=== PATIENT | female | born 2000 | race African-American/Black ===

== ENCOUNTER 2021-02-12 12:16 | Outpatient (CLI) | payer OTHER ==
[2020-08-05 17:53] VITALS: BMI 23.4
[~2021-02-12 12:16] MED LIST: REGLAN5 MG PO
== END 2021-02-12 15:30 | disposition home or self-care (01) ==
LOC: D.LDO 12:16
PROVIDERS: ATTEND Obstetrics & Gynecology
DX: O36.5990 Maternal care for other known or suspected poor fetal growth, unspecified trimester, not applicable or unspecified (principal)

== ENCOUNTER 2021-02-15 12:08 | Outpatient (CLI) | payer OTHER ==
[2020-08-05 17:53] VITALS: BMI 23.4
== END 2021-02-15 13:02 | disposition home or self-care (01) ==
LOC: D.LDO 12:08
PROVIDERS: ATTEND Obstetrics & Gynecology
DX: O41.00X0 Oligohydramnios, unspecified trimester, not applicable or unspecified (principal)

== ENCOUNTER 2021-02-22 20:24 | Inpatient (IN) | payer OTHER ==
[~2021-02-22] VITALS: Ht 165.1 cm; Wt 85.7 kg
--- NOTE | ~2021-02-22 | OP ---
PATIENT NAME: LD HASSAN MEDICAL RECORD: [id number] :99 LOCATION:[facility] D.1218 ADMISSION DATE:02/22/21 SURGEON: BEULAH LARSEN DO DATE OF OPERATION: 02/23/2021 PREOPERATIVE DIAGNOSES: Nonreassuring heart tracing, category II tracing, 38 weeks, IUGR, remote from delivery. POSTOPERATIVE DIAGNOSES: Nonreassuring heart tracing, category II tracing, 38 weeks, IUGR, remote from delivery. PRIMARY SURGEON: Beulah Larsen DO. ANESTHESIA: Spinal. PROCEDURE: Low transverse via Pfannenstiel incision. FINDINGS: Viable male infant born at 6:32 a.m., weight 6 pounds 11 ounces, Apgars 8 and 9. Clear amniotic fluid. No nuchal cord. Grossly normal uterus, bilateral tubes and ovaries. SPECIMEN: Placenta, cord blood, and cord pH, but cord pH was not done immediately and had to sit in the refrig per request of Respiratory. ESTIMATED BLOOD LOSS: 800 mL. IV FLUIDS: Per anesthesia. URINE OUTPUT: 300 mL clear yellow urine. INFECTION PROPHYLAXIS: 2 grams Ancef. COMPLICATIONS: None. INDICATION: Due to category II tracing, nonreassuring heart tracing, IUGR, and the patient only being 1 cm, and the patient was in repetitive decels, the patient was counseled on a , risks and benefits and recommended for delivery. The patient agreed. Risks including bleeding, pain, infection, damage to surrounding structures, repeat were reviewed. DESCRIPTION OF PROCEDURE: The patient was taken to the operating room. Spinal anesthesia was administered. She was prepped and draped in normal sterile fashion in dorsal supine position with leftward tilt. Pfannenstiel skin incision was made with a scalpel and carried down to the underlying layer of fascia. The fascia was incised in the midline and the incision extended laterally with Wyman scissors. The fascia was grasped with Guido clamps. Rectus muscle dissected off sharply in the inferior and superior aspects. Rectus muscle in the midline. Peritoneum identified and noted to be free of adherent bowel or bladder and entered bluntly. Peritoneum stretched with gentle traction. Bladder blade placed. Transverse incision made in the uterus with scalpel. This incision extended with upward and downward traction. Infant's head brought to the incision. Infant delivered without difficulty. Mouth and nose were suctioned. Cord was clamped and cut and handed to awaiting pediatric nurse with good cry. Placenta was then delivered manually. Uterus exteriorized. Dry laparotomy sponge used to assure complete removal of OPERATIVE REPORT [id number] SONYALD placental membranes. Hysterotomy reapproximated in a running locked fashion with good hemostasis with 0 Vicryl. Posterior cul-de-sac was irrigated and suctioned to remove blood clots and fluid. Uterus was noted to be firm. Uterus replaced back into the abdominal cavity and hemostasis adequate at the hysterotomy site. Gutters were cleaned with moist laparotomy sponges and removed blood clots and fluid. The above findings noted prior of the normal placenta, normal uterus, tubes, and ovaries. Muscles closed in a running fashion with 2-0 Monocryl. Fascia closed in a running fashion with 0 Vicryl. Muscle irrigated and no bleeding vessels noted prior to fascial closure. Subcutaneous layer irrigated. Bleeding vessels cauterized with Bovie. Subcutaneous layer were reapproximated with plain gut and skin closed in a subcuticular fashion with 3-0 Monocryl, Dermabond applied. The patient tolerated the procedure well. All lap, needle, sponge counts correct times 2. The patient was taken to recovery room in stable condition. TRANSINT:[id number] Voice Confirmation ID: [id number] DOCUMENT ID: [id number] BEULAH LARSEN DO CC: [id number] DICTATION DATE: 02/24/21530 SEWER PIPE SORTER: 02/24/21 0647 DIS IN 02/25/21 [facility] [address] [place] [address]
[2021-02-22 21:29] VITALS: BP 126/65; Ht 165.1 cm; Wt 85.7 kg
[2021-02-22 22:47] LABS: HEMATOCRIT 29.6 % (36.0-48.0); HEMOGLOBIN 10.2 g/dL (12-16); MCH 30.4 pg (26.0-34.0); MCHC 34.3 g/dL (31.0-37.0); MCV 88.6 fL (80.0-100.0); MEAN PLATELET VOLUME 10.8 fL (7.4-10.4); RBC 3.34 10x6/uL (4.00-5.40); RDW 12.6 % (11.5-14.5); WBC 8.7 10x3/uL (4.8-10.8)
[2021-02-22 23:01] LABS: UDS - AMPHET NEGATIVE QUAL (NEGATIVE); UDS - BARB NEGATIVE QUAL (NEGATIVE); UDS - BENZO NEGATIVE QUAL (NEGATIVE); UDS - COCAINE NEGATIVE QUAL (NEGATIVE); UDS - OPIATE NEGATIVE QUAL (NEGATIVE); UDS - PCP NEGATIVE QUAL (NEGATIVE); UDS - THC POSITIVE QUAL (NEGATIVE)
[2021-02-23 08:30] VITALS: BP 120/76
[2021-02-23 09:00] VITALS: BP 130/80
--- NOTE | 2021-02-23 09:01 | NUR ---
BEDSIDE REPORT RECEIVED FROM Estela STEVE RN. PT IS DROWSY BUT AWAKENS EASILY WHEN SPOKEN TO. SHE RATES HER PAIN AT 0/10 AT THIS TIME. FUNDUS FIRM WITH MASSAGE AT U/1, LIGHT BLEEDING WITHOUT CLOTS NOTED. BIKINI INCISION CLEAN AND DRY. NOYOLA CATH TO BEDSIDE GRAVITY DRAIN. SCD BILAT. CALL LIGHT IN REACH WITH SIDE RAILS UP X 2. LIGHTS DIMMED REQUESTED BY PATIENT.
--- NOTE | 2021-02-23 10:15 | NUR ---
PT AWAKE AND CALLS FOR PAIN MED, THIS RN TO BEDSIDE. IV PAIN MEDS GIVEN SCANNED TO EMAR. SHE RATES PAIN/BURNING AT 6/10. FUNDUS FIRM AT U/2 WITH LIGHT BLEEDING NOTED TO NATALIA PAD. SHE IS MOVING AROUND IN BED WITH NO NEED FOR ASSISTANCE. CALL LIGHT AND PHONE IN REACH WITH SIDE RAILS UP X 2.
--- NOTE | 2021-02-23 10:39 | NUR ---
RATES PAIN AT 2/10 AT THIS TIME. ASSISTANCE IS GIVEN TO MOVE UP IN BED AND TILT TO HER RIGHT SIDE, VERBAL INSTRUCTIONS ARE GIVEN ON WHEN AND HOW TO USE INCENTIVE SPIROMETER. 350ML EMPTIED FROM UROMETER. LIGHTS OUT REQUESTED, CALL LIGHT AND PHONE IN REACH WITH SIDE RAILS UP X 2.
--- NOTE | 2021-02-23 11:45 | NUR ---
FUNDUS FIRM AT U/1, NO CLOTS NOTED WITH MASSAGE, TOWELS CHANGED AND POSITIONED TO RIGHT TILT. BONDING WITH INFANT WITH FAMILYMEMBER/FRIEND AT BEDSIDE.
--- NOTE | 2021-02-23 13:15 | NUR ---
BONDING WITH INFANT, RATES PAIN AT 3/10 AND UNDERSTANDS TIME NEXT DOSE IA AVAILABLE. 200ML CLEAR URINE NOTED TO UROMETER. SHE DOES ASK WHEN NOYOLA CATH WOULD BE REMOVED. NEW ICE PACK TO INCISION AND LARGE ICE WATER REQUESTED. NO OTHER NEEDS AT THIS TIME. CALL LIGHT IN REACH.
--- NOTE | 2021-02-23 15:56 | MORECARE ---
CASE MANAGEMENT DISCHARGE SUMMARY PATIENT: LD HASSAN UNIT: [id number] ADM DATE: 02/22/21 AGE: 21 : 99 SEX: F ROOM/BED: D.1218 AUTHOR: SILVINO,DOC PHYSICIAN: REFERRING PHYSICIAN: LUCIO VUONG DO DATE OF SERVICE: 02/23/21 Case Management Discharge Planning Summary DCP REVIEW SUMMARY ANTICIPATED D/C DATE: EXPECTED LOS : CASE STATUS: DCP Initiated INITIAL REVIEW: 02/22/2021 INITIAL REVIEWER: Luan Lopez FINAL DISCHARGE DISPOSITION: : FINAL REVIEWER: FINAL REVIEW DATE: DCP Focus Questions & Answers QUESTION: ANSWER : PATIENT: LD HASSAN ENCOUNTER: [id number] MEDICAL RECORD#: [id number] ADMISSION DATE: 02/22/2021 DISCHARGE DATE: ATTENDING MD: ABRAHAM: AGE: 20 MARITAL STATUS: S DC PLAN ID: [id number] FACILITY: [facility] PRINTED ON: 02/23/21 15:56 CT All edits/amendments must be made on the electronic document DICTATION DATE: 02/23/21 155 HVAC TECHNICIAN RESIDENTIAL: OMKAR 02/23/21 1556 RPT#: [id number] DC DATE: STATUS: ADM IN [facility] [address] [place] [address] END OF REPORT
--- NOTE | 2021-02-23 16:08 | MORECARE ---
CASE MANAGEMENT DISCHARGE SUMMARY PATIENT: JALYN HASSAN UNIT: [id number] ADM DATE: 02/22/21 AGE: 21 : 99 SEX: F ROOM/BED: D.1218 AUTHOR: SILVINO,DOC PHYSICIAN: REFERRING PHYSICIAN: LUCIO LARSEN DO DATE OF SERVICE: 02/23/21 Case Management Discharge Planning Summary COMMENTS ENTERED DATE: 02/23/21 15:57 CT COMMENT TYPE: Discharge Planning REVIEWER: Luan Lopez Received consult for +UDS. CM met with Jalyn MENDOZA and Grand Mother of Baby, Nadiya Hassan to discuss DC needs. Antonietta THURMAN was absent from room. KELLY named her son Evelio Martin. MOB stated that she is unemployed but Antonietta THURMAN works at [employer]. MOB stated that she, the FOB, and baby will live in their home at [address] [place] [address]. MOB stated that no other people will be living in the home. MOB stated that the home environment is safe and stable. MOB stated that she smokes tobacco outside the home and denied excessive alcohol use in the home, or indoor pets. KELLY plans to return home via car to her home with [employer] at discharge. KELLY stated that this is her first child and as of yet has not attended any parenting classes. CM gave KELLY a [employer] brochure for parenting classes. KELLY stated that she will have plenty of help with caring for child through grandparents and family. KELLY stated that she has reliable transportation. KELLY stated that her home has city water, electric/gas, HVAC, and smoke detectors are installed at ceiling height. KELLY stated that she had care for the full and that her Pen Maker was Dr. Larsen. MOB stated that she does not have a sales agent financial report service for her son but it will most likely be Dr. Fajardo. CM encouraged MOB to find a sales agent financial report service before discharge so that nursing staff can help in making the appointment. MOB further stated that both she and the baby have Medicaid. CM gave MOB a [facility] [employer] programs handout. MOB stated that they do not use food stamps. MOB stated that she has WIC but her son does not. MOB stated that she has been calling for an appointment for her son. CM reinforced the need to call for a WIC appointment and gave WIC resources handout to MOB. MOB stated that she plans to breastfeed and is coordinating for a breast pump through [facility]. MOB does not plan to use formula but knows not to use tap water but to use distilled water in formula preparation. MOB stated that she has plenty of bottles, clothes, and diapers. MOB further stated that she has a car seat. MOB disclosed that she has smoked THC intermittently for 2 years and throughout the due to anxiety and stress and for morning sickness. MOB stated last use was 2 months prior to . MOB denied having THC prescription. MOB denies any concerns about taking the baby home. Denies any discharge planning needs at this time. CM gave handouts for [facility] [employer], [employer], [employer], and [facility] [place]. CM will continue to follow and assist as needed with discharge planning / needs. DCP REVIEW SUMMARY ANTICIPATED D/C DATE: EXPECTED LOS : CASE STATUS: DCP Initiated INITIAL REVIEW: 02/22/2021 INITIAL REVIEWER: Luan Lopez FINAL DISCHARGE DISPOSITION: : FINAL REVIEWER: FINAL REVIEW DATE: DCP Focus Questions & Answers QUESTION: ANSWER : PATIENT: JALYN HASSAN ENCOUNTER: [id number] MEDICAL RECORD#: [id number] ADMISSION DATE: 02/22/2021 DISCHARGE DATE: ATTENDING MD: ABRAHAM: AGE: 20 MARITAL STATUS: S DC PLAN ID: [id number] FACILITY: [facility] PRINTED ON: 02/23/21 16:07 CT All edits/amendments must be made on the electronic document DICTATION DATE: 02/23/211606 BANK BOSS: OMKAR 02/23/211606 RPT#: [id number] DC DATE: STATUS: ADM IN [facility] [address] [place] [address] END OF REPORT
--- NOTE | 2021-02-23 16:28 | NUR ---
PAIN MED GIVEN FOR C/O PAIN THAT SHE RATES AT 7/10. FUNDUS FIRM AT U/U WITH LIGHT BLEEDING. UNDERPADS CHANGED AND PT ABLE TO RAISE BOTTOM OFF OF BED AND POSITION SELF FOR COMFORT. DENIES ANY OTHER NEEDS AT THIS TIME. CALL LIGHT IN REACH.
--- NOTE | 2021-02-23 17:07 | NUR ---
LARGE ICE WATER REQUESTED, ADDITIONAL CHICKEN BROTH ALSO PROVIDED. PT SITTING UP IN BED, RATES PAIN AT 2/10. NO OTHER NEEDS AT THIS TIME.
[2021-02-23 19:30] VITALS: BP 123/68
--- NOTE | 2021-02-23 19:30 | NUR ---
ASSESSMENT COMPLETED. PT IS IN BED AND HAS NO GOTTEN UP. INCISION LOOKS GOOD WITH NO REDNESS OR DRAINAGE. FUNDUS IS FIRM. BLEEDING IS SMALL TO MOD. PT HAS SL IN HER RIGHT WRIST. PT WAS INSTRUCTED ON USE OF THE INCENTIVE SPIROMETER. SHE PULLS 1500 CONSISTENLY. SHE WAS INSTRUCTED TO USE THIS DEVICE 10 TIMES EVERY HOUR SHE IS AWAKE. IT WAS EXPLAINED THAT THIS WOULD HELP PREVENT POST OP PNEUMONIA. SHE VERBALIZED UNDERSTANDING. PT HAS AN ICE PACK TO HER INCISION. MOVING ABOUT IN BED WELL. SIDE RAILS UP X 2 AND CALL LIGHT BESIDE PT.
--- NOTE | 2021-02-23 21:10 | NUR ---
NOYOLA CATHETER REMOVED. PADS CHANGED. LOCHIA MOD. SMALL CLOTS SEEN WHEN PT WAS CLEANED UP.
--- NOTE | 2021-02-23 21:26 | NUR ---
PT C/O PAIN IN HER INCISION AREA. SHE RATES THIS PAIN A 10. 2 MG DILAUDID GIVEN IV.
--- NOTE | 2021-02-23 22:23 | NUR ---
PT C/O NAUSEA. ZOFRAN 4 MG GIVEN IV.
--- NOTE | 2021-02-23 22:29 | NUR ---
ICE PACK REFILLED AND ON PT INCISION.
--- NOTE | 2021-02-23 22:40 | NUR ---
PT VOMITED. GOWN CHANGED. NO OTHER C/O OR NEED AT THIS TIME.
[2021-02-24] VITALS (10 sets, daily range): BP systolic 122–142; BP diastolic 50–82
--- NOTE | 2021-02-24 01:00 | NUR ---
PT GOT UP AND WALKED TO THE BR WITH ASSIST. SHE VOIDED 200 ML. AFTER THAT I TOOK HER A MUG FULL OF ICE WATER FOR HER TO DRINK. SHE DID VERY WELL AMBULATING AND ONLY REQUIRED SBA.
--- NOTE | 2021-02-24 03:10 | NUR ---
PT IS RESTING QUIETLY WITH HER EYES CLOSED. NO C/O OR NEEDS
--- NOTE | 2021-02-24 05:30 | NUR ---
PT CONT TO REST WITH HER EYES CLOSED. NO C/O OR NEEDS
--- NOTE | 2021-02-24 06:00 | NUR ---
PT WALKED TO THE BR AND VOIDED 150 ML.
[2021-02-24 06:37] LABS: BASOPHILS 0.2 % (0-2); EOSINOPHILS 0.6 % (0-7); HEMATOCRIT 20.9 % (36.0-48.0); MCH 30.5 pg (26.0-34.0)
--- NOTE | 2021-02-24 06:38 | NUR ---
BLADDER SCAN PERFORMED. 116 ML OF URINE IN THE BLADDER
[2021-02-24 06:39] LABS: LYMPHOCYTES 11.2 % (15-50); MCV 89.6 fL (80.0-100.0); MEAN PLATELET VOLUME 10.4 fL (7.4-10.4); MONOCYTES 7.2 % (2-11); NEUTROPHILS 80.8 % (40-80); PLATELET COUNT 125 10x3/uL (130-400); RDW 12.8 % (11.5-14.5); WBC 9.2 10x3/uL (4.8-10.8)
[2021-02-24 06:44] LABS: RBC 2.33 10x6/uL (4.00-5.40)
[2021-02-24 06:45] LABS: HEMOGLOBIN 7.1 g/dL (12-16)
--- NOTE | 2021-02-24 08:15 | NUR ---
PHONE CALL RECEIVED FROM DR. YEVGENIY MD HAS REVIEWED LAB RESULTS FROM THIS AM. ORDERED REPEAT LAB DRAW FOR 10 AM. WILL ADM KISHA WELL THIS AM.
--- NOTE | 2021-02-24 08:30 | NUR ---
AM ASSESSMENT COMPLETED, SEE FLOWSHEET. PT DENIES HEAVY BLEEDING OR PASSING CLOTS. PT DENIES SOB, DIFFICULTY BREATHING, CHEST PAIN, DENIES N/V, DENIES DIZZINESS. PT ALSO DENIES HEAVY BLEEDING OR PASSING CLOTS. LARGE ICE WATER SERVED TO PT. SEE EMAR FOR ALL MEDS ADM BY THIS RN. MED ADM RECORD REVIEWED WITH PT. PT IS USING I/S AND COUGHING AND DEEP BREATHING EXERCISES PER SELF. SRUP X2, CALL LIGHT AND PHONE WITHIN REACH.
--- NOTE | 2021-02-24 11:15 | NUR ---
PT LYING IN BED, WITH HOB ELEVATE, ON CELL PHONE, LIGHTS ARE DIM IN ROOM, INFANT IN CRIB, SLEEPING, NO DISTRESS NOTED IN MOM OR BABY. LARGE FRESH ICE WATER SERVED. PT CONTINUES TO DENY DIZZINESS, CHEST PAIN, SOB, OR DIFFICULTY BREATHING. DENIES ALL OTHER NEEDS. SRUP X2, CALL LIGHT AND PHONE WITHIN REACH.
--- NOTE | 2021-02-24 11:30 | NUR ---
LAB HERE TO DRAW BLOODWORK.
[2021-02-24 11:45] LABS: HEMATOCRIT 20.3 % (36.0-48.0)
[2021-02-24 11:49] LABS: HEMOGLOBIN 6.9 g/dL (12-16)
--- NOTE | 2021-02-24 11:50 | NUR ---
ALL FROM THE LAB CALLS H/H VALUES OF 6.9, AND 20.3, WILL REPORT TO DR. VUONG.
--- NOTE | 2021-02-24 12:05 | NUR ---
TO PT'S ROOM, PT IS SITTING UP ON THE SIDE OF THE BED, CHANGING INFANT'S DIAPER. REDRAW AND AM LAB H/H RESULTS EXPLAINED TO PT. PT HAS VOIDED 300 MLS IN [facility], STATES SHE DID THIS "RIGHT AT SHIFT CHANGE". PT ENCOURAGED TO GET UP TO THE BR, VOID IN [facility], AND CALL ME WHEN SHE DOES. PT AGREES. Royal BLUM LPN TO ROOM TO TAKE TO [facility]. PT DENEIS ALL OTHER NEEDS. DIETARY HAS SERVED REGULAR LUNCH TRAY.
--- NOTE | 2021-02-24 13:00 | NUR ---
DR. VUONG IN ROOM SPEAKING WITH PT REGARDING LAB WORK, AND PLAN OF CARE. PT AGREES TO INFUSION OF 2 UNITS PRBCS. PT STATES SHE HAS NOT VOIDED SINCE THIS AM. PT AGAIN ENCOURAGED TO EMPTY BLADDER. PT AGREES.
--- NOTE | 2021-02-24 13:30 | NUR ---
TO ROOM, SL TO LEFT FOREARM FLUSHED WITH 10 CCS NS, NO REDNESS OR SWELLING NOTED TO IV SITE.
--- NOTE | 2021-02-24 13:33 | NUR ---
NS STARTED TO LEFT FA, SEE EMAR, AWAITING PRBCS.
--- NOTE | 2021-02-24 19:00 | NUR ---
SECOND UNIT OF BLOOD HUNG FOR PT. SHE IS IN BED WITH NO C/O. VS MACHINE HOOKED UP READY TO TAKE VITALS THROUGHOUT THE PROCEDURE. VOIDING WELL, FUNDUS FIRM, LOCHIA SMALL. PT IS VOIDING WELL.
--- NOTE | 2021-02-24 19:00 | NUR ---
SECOND UNIT PRBCS STARTED AT 100 ML/HR ON PUMP, VERIFIED BY Royal VOSS RN. PT DENIES SOB, CHILLS, FLANK PAIN, OR FEVER. BEDSIDE SHIFT REPORT GIVEN. PT HAS VOIDED 900 MLS YELLOW URINE IN [facility], DENIES HEAVY BLEEDING. PT IS NOW ATTEMPTING TO BREASTFEED . DENIES ALL OTHER NEEDS. SR UP X2, CL/PHONE WITHIN REACH.
--- NOTE | 2021-02-24 19:30 | NUR ---
ASSESSMENT COMPLETED. BLOOD CONT TO HANG AT 200ML/HR. VS HAVE BEEN WNL. PT IS FEEDING THE BABY. IV IS IN THE RIGHT WRIST.
--- NOTE | 2021-02-24 20:00 | NUR ---
PT RESTING QUIETLY TRYING TO HAVE BABY EAT MORE. THERE IS SOME FRUSTRATION IN HER VOICE. SHE HAS NO C/O OR NEEDS AT THIS TIME.
--- NOTE | 2021-02-24 21:00 | NUR ---
BLOOD COMPLETED. VS TAKEN. PT IS ANXIOUS TO GET UP TO GO TO THE BR. SHE WAS HELPED UP AND SHE STATES SHE VOIDED "ALOT". SHE STATES SHE FELT SO MUCH BETTER AFTER EMPTYING HER BLADDER. IV FLUIDS CONT.
--- NOTE | 2021-02-24 22:00 | NUR ---
ONE HOUR POST INFUSION VS COMPLETED. IV FLUIDS CONT. BABY KESHA BROUGHT PT TACO JING.
[2021-02-25] VITALS: BP 115/62
--- NOTE | 2021-02-25 | NUR ---
PT IS AWAKE WATCHING TV. SHE IS HOLDING THE BABY. NO C/O OR NEEDS AT THIS TIME
--- NOTE | 2021-02-25 02:04 | NUR ---
PT IS STILL AWAKE. BABY KESHA IS ONCE AGAIN IN THE ROOM. PT HAS NO C/O OR NEEDS AT THIS TIME.
--- NOTE | 2021-02-25 04:00 | NUR ---
TOOK BABY TO THE NURSERY FOR NURSERY NURSE. WHEN I WENT TO GET THE BABY I PICKED HIM UP FROM HIS MOTHER'S SLEEPING ARMS. MOM DID WAKE UP AND I TALKED TO HER A SECOND TIME TONIGHT ABOUT NOT SLEEPING WITH HER BABY IN HER BED.
--- NOTE | 2021-02-25 06:03 | NUR ---
PT IS STILL SLEEPING. BABY IS IN THE CRIB BESIDE MOMS BED. NO C/O OR NEEDS AT THIS TIME
[2021-02-25 07:53] LABS: BASOPHILS 0.3 % (0-2); EOSINOPHILS 0.9 % (0-7); MCH 29.6 pg (26.0-34.0); MCHC 33.6 g/dL (31.0-37.0); MCV 88.1 fL (80.0-100.0); MEAN PLATELET VOLUME 10.2 fL (7.4-10.4); MONOCYTES 7.8 % (2-11); PLATELET COUNT 143 10x3/uL (130-400); RDW 13.9 % (11.5-14.5)
--- NOTE | 2021-02-25 08:10 | NUR ---
PT SITTING UP EATING BREAKFAST WITH INFANT IN CRIB AT BEDSIDE, RATES PAIN AT 3/10 AND DENIES NEED FOR MEDS AT THIS TIME. FUNDUS FIRM AT U/U WITH LIGHT BLEEDING AND NO CLOTS WITH MASSAGE. IV INFUSING PER ORDERS. CALL LIGHT IN REACH WITH SIDE RAILS UP X 2.
[2021-02-25 08:19] LABS: HEMATOCRIT 25.5 % (36.0-48.0); HEMOGLOBIN 8.6 g/dL (12-16)
--- NOTE | 2021-02-25 09:48 | NUR ---
RATES PAIN AT 2/10. LARGE CUP OF ICE WATER REQUESTED, NO OTHER NEEDS AT THIS TIME. CALL LIGHT IN REACH.
[2021-02-25 10:21] VITALS: BP 122/82
--- NOTE | 2021-02-25 11:30 | NUR ---
LARGE CUP OF ICE REQUESTED, NO OTHER NEEDS AT THIS TIME.
--- NOTE | 2021-02-25 13:03 | NUR ---
SALINE LOCK REMOVED WITH CATH INTACT. SHOWER SEAT PLACED IN BATHROOM AND PT UNDERSTANDS TO CALL FOR NURSE IF NEEDED. SIG OTHER TO REMAIN IN ROOM DURING HER SHOWER. TO NURSERY VIA CRIB.
--- NOTE | 2021-02-25 13:17 | MORECARE ---
CASE MANAGEMENT DISCHARGE SUMMARY PATIENT: JALYN HASSAN UNIT: [id number] ADM DATE: 02/22/21 AGE: 21 : 99 SEX: F ROOM/BED: D.1218 AUTHOR: SILVINO,DOC PHYSICIAN: REFERRING PHYSICIAN: LUCIO LARSEN DO DATE OF SERVICE: 02/25/21 Case Management Discharge Planning Summary COMMENTS ENTERED DATE: 02/23/21 15:57 CT COMMENT TYPE: Discharge Planning REVIEWER: Luan Lopez Received consult for +UDS. CM met with Jalyn MENDOZA and Grand Mother of Baby, Nadiya Hassan to discuss DC needs. Antonietta THURMAN was absent from room. KELLY named her son Evelio Martin. MOB stated that she is unemployed but Antonietta THURMAN works at [employer]. MOB stated that she, the FOB, and baby will live in their home at [address] [place] [address]. MOB stated that no other people will be living in the home. MOB stated that the home environment is safe and stable. MOB stated that she smokes tobacco outside the home and denied excessive alcohol use in the home, or indoor pets. KELLY plans to return home via car to her home with [employer] at discharge. KELLY stated that this is her first child and as of yet has not attended any parenting classes. CM gave KELLY a [employer] brochure for parenting classes. KELLY stated that she will have plenty of help with caring for child through grandparents and family. KELLY stated that she has reliable transportation. KELLY stated that her home has city water, electric/gas, HVAC, and smoke detectors are installed at ceiling height. KELLY stated that she had care for the full and that her Calender Roll Press Operator was Dr. Larsen. MOB stated that she does not have a licensed mortician for her son but it will most likely be Dr. Fajardo. CM encouraged MOB to find a licensed mortician before discharge so that nursing staff can help in making the appointment. MOB further stated that both she and the baby have Medicaid. CM gave MOB a [facility] [employer] programs handout. MOB stated that they do not use food stamps. MOB stated that she has WIC but her son does not. MOB stated that she has been calling for an appointment for her son. CM reinforced the need to call for a WIC appointment and gave WIC resources handout to MOB. MOB stated that she plans to breastfeed and is coordinating for a breast pump through [facility]. MOB does not plan to use formula but knows not to use tap water but to use distilled water in formula preparation. MOB stated that she has plenty of bottles, clothes, and diapers. MOB further stated that she has a car seat. MOB disclosed that she has smoked THC intermittently for 2 years and throughout the due to anxiety and stress and for morning sickness. MOB stated last use was 2 months prior to . MOB denied having THC prescription. MOB denies any concerns about taking the baby home. Denies any discharge planning needs at this time. CM gave handouts for [facility] [employer], [employer], [employer], and [employer]. CM will continue to follow and assist as needed with discharge planning / needs. DCP REVIEW SUMMARY ANTICIPATED D/C DATE: EXPECTED LOS : CASE STATUS: DCP Initiated INITIAL REVIEW: 02/22/2021 INITIAL REVIEWER: Luan Lopez FINAL DISCHARGE DISPOSITION: : FINAL REVIEWER: FINAL REVIEW DATE: DCP [employer] Questions & Answers QUESTION: ANSWER : PATIENT: JALYN HASSAN ENCOUNTER: [id number] MEDICAL RECORD#: [id number] ADMISSION DATE: 02/22/2021 DISCHARGE DATE: ATTENDING MD: ABRAHAM: AGE: 21 MARITAL STATUS: S DC PLAN ID: [id number] FACILITY: [facility] PRINTED ON: 02/25/21 13:17 CT All edits/amendments must be made on the electronic document DICTATION DATE: 02/25/21 1317 SAMPLE CASE PORTER: OMKAR 02/25/21 1317 RPT#: [id number] DC DATE: STATUS: ADM IN [facility] [address] [place] [address] END OF REPORT
--- NOTE | 2021-02-25 14:35 | NUR ---
MMR TO LEFT ARM SCANNED TO EMAR.
--- NOTE | 2021-02-25 14:38 | NUR ---
VERBAL AND WRITTEN DISCHARGE INSTRUCTONS GONE OVER, PT IS GIVEN WRITTEN SCRIPT FOR PERCOCET 5/325MG AND MOTRIN 600MG. SHE STATES UNDERSTANDING TO CARE OF INCISION AND S/S OF INFECTION. DENIES QUESTIONS OR CONCERNS. NURSERY NOTIFIED FOR DISCHARGE.
--- NOTE | 2021-02-25 15:14 | NUR ---
TAKEN OUT BY WHEELCHAIR WITH . HOME BY PRIVATE CAR WITH SIG OTHER.
--- NOTE | 2021-02-25 23:19 | MORECARE ---
CASE MANAGEMENT DISCHARGE SUMMARY PATIENT: JALYN HASSAN UNIT: [id number] ADM DATE: 02/22/21 AGE: 21 : 89 SEX: F ROOM/BED: D.1218 AUTHOR: SILVINO,DOC PHYSICIAN: REFERRING PHYSICIAN: LUCIO LARSEN DO DATE OF SERVICE: 02/25/21 Case Management Discharge Planning Summary COMMENTS ENTERED DATE: 02/23/21 15:57 CT COMMENT TYPE: Discharge Planning REVIEWER: Luan Lopez Received consult for +UDS. CM met with Jalyn MENDOZA and Grand Mother of Baby, Nadiya Hassan to discuss DC needs. Antonietta THURMAN was absent from room. KELLY named her son Evelio Martin. MOB stated that she is unemployed but Antonietta THURMAN works at [employer]. MOB stated that she, the FOB, and baby will live in their home at [address] [place] [address]. MOB stated that no other people will be living in the home. MOB stated that the home environment is safe and stable. MOB stated that she smokes tobacco outside the home and denied excessive alcohol use in the home, or indoor pets. KELLY plans to return home via car to her home with [facility] at discharge. KELLY stated that this is her first child and as of yet has not attended any parenting classes. CM gave KELLY a [employer] brochure for parenting classes. KELLY stated that she will have plenty of help with caring for child through grandparents and family. KELLY stated that she has reliable transportation. KELLY stated that her home has city water, electric/gas, HVAC, and smoke detectors are installed at ceiling height. KELLY stated that she had care for the full and that her Functional Tester was Dr. Larsen. MOB stated that she does not have a reading professor for her son but it will most likely be Dr. Fajardo. CM encouraged MOB to find a reading professor before discharge so that nursing staff can help in making the appointment. MOB further stated that both she and the baby have Medicaid. CM gave MOB a [facility] [employer] programs handout. MOB stated that they do not use food stamps. MOB stated that she has WIC but her son does not. MOB stated that she has been calling for an appointment for her son. CM reinforced the need to call for a WIC appointment and gave WIC resources handout to MOB. MOB stated that she plans to breastfeed and is coordinating for a breast pump through [facility]. MOB does not plan to use formula but knows not to use tap water but to use distilled water in formula preparation. MOB stated that she has plenty of bottles, clothes, and diapers. MOB further stated that she has a car seat. MOB disclosed that she has smoked THC intermittently for 2 years and throughout the due to anxiety and stress and for morning sickness. MOB stated last use was 2 months prior to . MOB denied having THC prescription. MOB denies any concerns about taking the baby home. Denies any discharge planning needs at this time. CM gave handouts for [facility] [employer], [employer], [employer], and [email or web address]. CM will continue to follow and assist as needed with discharge planning / needs. DCP REVIEW SUMMARY ANTICIPATED D/C DATE: EXPECTED LOS : CASE STATUS: DCP Initiated INITIAL REVIEW: 02/22/2021 INITIAL REVIEWER: Luan Lopez FINAL DISCHARGE DISPOSITION: : FINAL REVIEWER: FINAL REVIEW DATE: DCP [employer] Questions & Answers QUESTION: ANSWER : PATIENT: JALYN HASSAN ENCOUNTER: [id number] MEDICAL RECORD#: [id number] ADMISSION DATE: 02/22/2021 DISCHARGE DATE: 02/25/2021 ATTENDING MD: ABRAHAM: AGE: 21 MARITAL STATUS: S DC PLAN ID: [id number] FACILITY: [facility] PRINTED ON: 02/25/21 23:19 CT All edits/amendments must be made on the electronic document DICTATION DATE: 02/25/212318 FIXED WING PILOT: OMKAR 02/25/212318 RPT#: [id number] DC DATE:02/25/21 STATUS: DIS IN [facility] [address] [place] [address] END OF REPORT
== END 2021-02-25 15:16 | disposition home or self-care (01) | DRG 788 ==
LOC: D.LD 20:24 → D.WS 20:24
PROVIDERS: ADMIT Obstetrics & Gynecology; ATTEND Obstetrics & Gynecology
PROC: 10D00Z1 Extraction of Products of Conception, Low, Open Approach (ICD-10-PCS; principal; 2021-02-23)
DX: O36.5930 Maternal care for other known or suspected poor fetal growth, third trimester, not applicable or unspecified (principal); Z3A.38 38 weeks gestation of pregnancy; Z37.0 Single live birth; O76 Abnormality in fetal heart rate and rhythm complicating labor and delivery